=== PATIENT | female | born 1980 ===

== ENCOUNTER 2023-07-05 05:09 | Emergency (ER) | payer MEDICAID ==
[~2023-07-05] VITALS: Ht 157.5 cm; Wt 72.7 kg
[2023-07-05 05:11] VITALS: TEMP 98.2
[2023-07-05] MEDS ORDERED: IBUPROFEN 600 MG TABLET PO ONE (05:45)
[2023-07-05 05:50] VITALS: BP 163/94; PULSE 90; RESP 18
[2023-07-05] MEDS ORDERED: PHENYLEPHRINE HCL 1% 15 ML NASAL SPRAY NASAL ONE (08:30)
[2023-07-05] MEDS ORDERED: IBUP-1492 PO (09:37)
== END 2023-07-05 09:56 | disposition home or self-care (01) ==
LOC: EMS 05:11
DX: S02.2XXA Fracture of nasal bones, initial encounter for closed fracture (principal); W31.89XA Contact with other specified machinery, initial encounter; Y93.89 Activity, other specified; Y92.89 Other specified places as the place of occurrence of the external cause; Y99.8 Other external cause status
CPT/HCPCS: 70486; 99284; Z7502; Z7610